=== PATIENT | female | born 1965 | race Caucasian/White ===

== ENCOUNTER 2020-05-28 00:54 | Emergency (ER) | payer OTHER ==
[2020-05-28] MEDS ORDERED: KETOROLAC 15 MG/ML 1 ML VIAL IM STA (02:29)
[2020-05-28] MEDS ORDERED: KETOROLAC 15 MG/ML 1 ML VIAL ONE (03:03)
--- NOTE | 2020-05-28 03:14 | ED ---
General Adult HPI - General Chief complaint: Skin/Abscess/Foreign Body Stated complaint: Pelvic Pain Time Seen by Provider: 05/28/20 01:38 Source: patient Mode of arrival: ambulatory Limitations: no limitations - History of Present Illness Initial comments: 55-year-old female patient presents to the emergency department today for evaluation of pain to the right groin, right thigh, and right calf. Patient states the pain started earlier today. Denies any swelling to the leg. Patient states she can feel lumps over the right groin. Denies any redness, swelling, or drainage. Denies any fever or chills. Patient states that she did have a [address] ride from [place] to here approximately 3 weeks ago. Denies any history of DVT. Denies use of hormonal medications. Denies any injury to the leg. Patient denies any recent rash, cough, shortness of breath, chest pain, abdominal pain, nausea, vomiting, diarrhea, constipation, back pain, numbness, tingling, dizziness, weakness, hematuria, dysuria, urinary urgency, urinary frequency, headache, visual changes, or any other complaints. - Related Data Previous Rx's Medication Instructions Recorded Ibuprofen [Motrin] 600 mg PO Q8HR PRN #30 tab 05/28/20 Allergies Allergy/AdvReac Type Severity Reaction Status Date / Time ciprofloxacin AdvReac Rash/Hives Verified 05/28/20 01:07 lorazepam [From Ativan] AdvReac Unknown Verified 05/28/20 04:05 Sulfa (Sulfonamide AdvReac Rash/Hives Verified 05/28/20 01:07 Antibiotics) sulfamethoxazole AdvReac Rash/Hives Verified 05/28/20 01:07 [From Bactrim] trimethoprim [From Bactrim] AdvReac Rash/Hives Verified 05/28/20 01:07 Review of Systems ROS Statement: Those systems with pertinent positive or pertinent negative responses have been documented in the HPI. ROS Other: All systems not noted in ROS Statement are negative. Past Medical History Past Medical History: Fibromyalgia Additional Past Medical History / Comment(s): herniated discs. History of Any Multi-Drug Resistant Organisms: None Reported Past Surgical History: Section Past Psychological History: Anxiety Smoking Status: Current every day smoker Past Alcohol Use History: Rare Past Drug Use History: None Reported General Exam Limitations: no limitations General appearance: alert, in no apparent distress, other (This is a well- developed, well-nourished adult female patient in no acute distress. Vital signs upon presentation are temperature 98.5F, pulse 76, respirations 19, blood pressure 130/80, pulse ox 100% on room air.) Respiratory exam: Present: normal lung sounds bilaterally. Absent: respiratory distress, wheezes, rales, rhonchi, stridor Cardiovascular Exam: Present: regular rate, normal rhythm, normal heart sounds. Absent: systolic murmur, diastolic murmur, rubs, gallop, clicks GI/Abdominal exam: Present: soft, normal bowel sounds. Absent: distended, tenderness, guarding, rebound, rigid External exam: Present: normal external exam, other (There is tenderness noted over the right mons pubis. No erythema. No evidence for abscess.) Extremities exam: Present: normal inspection, full ROM, tenderness (Right groin), normal capillary refill, other (Skin to the right leg is pink, warm, dry. Cap refills less than 3 seconds. Pedal and posttibial pulses are 2+ and equal bilaterally. No swelling noted.). Absent: pedal edema, joint swelling, calf tenderness Course Vital Signs 05/28/20 05/28/20 01:03 04:16 Temperature 98.5 F Pulse Rate 76 63 Respiratory 19 19 Rate Blood Pressure 130/80 112/61 O2 Sat by Pulse 100 98 Oximetry EKG Findings - EKG Comments: EKG Findings:: EKG obtained at 10 11 shows normal sinus rhythm with a ventricular rate is 72, NC interval 158, QRS duration 82, QT 374, QTC 409. No evidence of ST elevation or depression. Medical Decision Making - Medical Decision Making 55-year-old female patient presents to the emergency department today for evaluation of right calf, right thigh, and right groin pain. Physical examination is unremarkable. There is no soft tissue swelling. Neurovascular status is intact. Patient did have some tenderness over the right mons pubis with no evidence or erythema or abscess. No inguinal lymph nodes are appreciated. Patient did recently have a long car trip from [place] to [place]. We did ultrasound the right legs for DVT, it was negative. She was given anti-inflammatory medication. Upon reevaluation shows report improvement of symptoms. To be discharged home with instructions follow up with her primary care physician for recheck in 1-2 days. Return parameters were discussed in detail. She verbalizes understanding and agrees with this plan. - Radiology Data Radiology results: report reviewed Ultrasound of the right leg was obtained. Report was reviewed in its entirety. Impression by Dr. Marsh shows negative for DVT. Disposition Clinical Impression: Right leg pain, Right groin pain Disposition: HOME SELF-CARE Condition: Good Instructions (If sedation given, give patient instructions): Groin Pain (ED), Leg Pain (ED) Additional Instructions: Rest. Take Advil and Tylenol for pain control. Follow up with her primary care physician for recheck in 1-2 days. Return to the emergency department immediately for any new, worsening, or concerning symptoms. Is patient prescribed a controlled substance at d/c from ED?: No Referrals: None,Stated [Primary Care Provider] - 1-2 days Time of Disposition: 04:42
[2020-05-28] MEDS ORDERED: LORazepam 1 MG TAB PO STA (04:02)
[2020-05-28] MEDS ORDERED: hydrOXYzine pamoate 25 MG CAP PO STA (04:08)
--- NOTE | 2020-05-28 04:29 | US ---
EXAMINATION TYPE: US venous doppler duplex LE RT DATE OF EXAM: 05/28/2020 2:29 AM COMPARISON: NONE CLINICAL HISTORY: Right calf and thigh pain. Pain SIDE PERFORMED: Right TECHNIQUE: The lower extremity deep venous system is examined utilizing real time linear array sonog maday with graded compression, doppler sonography and color-flow sonography. VESSELS IMAGED: External Iliac Vein (EIV) Common Femoral Vein Deep Femoral Vein Greater Saphenous Vein * Femoral Vein Popliteal Vein Small Saphenous Vein * Proximal Calf Veins (* superficial vessels) Right Leg: Negative for DVT IMPRESSION: No sign of deep vein thrombosis in the right leg.
[2020-05-28 05:11] VITALS: BP 120/57; PULSE 65; RESP 14; TEMP 97.6
== END 2020-05-28 05:07 | disposition home or self-care (01) ==
LOC: EC 00:54
DX: R10.31 Right lower quadrant pain (principal); M79.661 Pain in right lower leg; M79.651 Pain in right thigh; R10.2 Pelvic and perineal pain; F17.200 Nicotine dependence, unspecified, uncomplicated; Z88.1 Allergy status to other antibiotic agents; Z88.2 Allergy status to sulfonamides; Z88.8 Allergy status to other drugs, medicaments and biological substances
CPT/HCPCS: 93971; 99284; 96372; J1885

== ENCOUNTER 2020-07-22 09:42 | Emergency (ER) | payer OTHER ==
[2020-07-22] MEDS ORDERED: ONDANSETRON 4 MG/2 ML VIAL IVP STA (10:02)
[2020-07-22] MEDS ORDERED: SODIUM CHLORIDE 0.9% 2,000 ML IV STA (10:02)
[2020-07-22] MEDS ORDERED: DIAZEPAM 5 MG/ML 2 ML INJ IVP STA (10:04)
[2020-07-22] MEDS ORDERED: ACETAMINOPHEN TAB 325 MG TAB PO STA (10:06)
--- NOTE | 2020-07-22 10:07 | ED ---
General Adult HPI - General Chief complaint: Nausea/Vomiting/Diarrhea Stated complaint: Lightheaded, Diarhea Time Seen by Provider: 07/22/20 09:56 Source: patient, family, RN notes reviewed Mode of arrival: ambulatory Limitations: no limitations - History of Present Illness Initial comments: This is a 55-year-old female presents emergency Department chief complaint of abdominal discomfort, fever, urinary frequency and diarrhea. Patient states that this has been increasing for a while. Patient states that she's been struggling with anxiety issues in which she has a long history of this. She states she just felt like the symptoms related to anxiety but states symptoms worsened and she was concerned. Patient had multiple prior C-sections. Patient denies any known sick contacts. Denies any chest pain, cough or cold-like symptoms. Patient denies any other associated symptoms at this time. - Related Data Previous Rx's Medication Instructions Recorded Ibuprofen [Motrin] 600 mg PO Q8HR PRN #30 tab 05/28/20 Omeprazole [PriLOSEC] 40 mg PO DAILY #14 cap 07/22/20 Allergies Allergy/AdvReac Type Severity Reaction Status Date / Time ciprofloxacin AdvReac Rash/Hives Verified 07/22/20 09:52 lorazepam [From Ativan] AdvReac Unknown Verified 07/22/20 09:52 Sulfa (Sulfonamide AdvReac Rash/Hives Verified 07/22/20 09:52 Antibiotics) sulfamethoxazole AdvReac Rash/Hives Verified 07/22/20 09:52 [From Bactrim] trimethoprim [From Bactrim] AdvReac Rash/Hives Verified 07/22/20 09:52 Review of Systems ROS Statement: Those systems with pertinent positive or pertinent negative responses have been documented in the HPI. ROS Other: All systems not noted in ROS Statement are negative. Past Medical History Past Medical History: Fibromyalgia Additional Past Medical History / Comment(s): herniated discs. History of Any Multi-Drug Resistant Organisms: None Reported Past Surgical History: Section Past Psychological History: Anxiety, Depression Smoking Status: Current every day smoker Past Alcohol Use History: None Reported Past Drug Use History: None Reported General Exam Limitations: no limitations General appearance: alert, in no apparent distress Head exam: Present: atraumatic, normocephalic, normal inspection Eye exam: Present: normal appearance, PERRL, EOMI. Absent: scleral icterus, conjunctival injection, periorbital swelling ENT exam: Present: normal exam, normal oropharynx, mucous membranes moist Neck exam: Present: normal inspection, full ROM. Absent: tenderness, me ningismus, lymphadenopathy Respiratory exam: Present: normal lung sounds bilaterally. Absent: respiratory distress, wheezes, rales, rhonchi, stridor Cardiovascular Exam: Present: normal rhythm, tachycardia, normal heart sounds. Absent: systolic murmur, diastolic murmur, rubs, gallop, clicks GI/Abdominal exam: Present: soft, tenderness, normal bowel sounds. Absent: distended, guarding, rebound, rigid Back exam: Absent: CVA tenderness (R), CVA tenderness (L) Psychiatric exam: Present: normal affect, normal mood Course Vital Signs 07/22/20 07/22/20 09:47 11:00 Temperature 100.5 F H Pulse Rate 94 61 Respiratory 20 18 Rate Blood Pressure 126/67 118/67 O2 Sat by Pulse 98 97 Oximetry Medical Decision Making - Medical Decision Making 55-year-old presented for anxiety issues, diarrhea abdominal. CT does not show any evidence of acute infection. Patient most likely has a gastroenteritis. Patient does have some evidence of ulcer disease. Patient will given omeprazole we discharged with close follow-up PCP and return parameters were discussed. - Lab Data Result diagrams: 07/22/20 10:13 07/22/20 10:13 Lab Results 07/22/20 07/22/20 07/22/20 Range/Units 10:13 10:13 10:13 WBC 10.6 (3.8-10.6) k/uL RBC 4.78 (3.80-5.40) m/uL Hgb 15.2 (11.4-16.0) gm/dL Hct 46.4 H (34.0-46.0) % MCV 97.0 (80.0-100.0) fL MCH 31.7 (25.0-35.0) pg MCHC 32.7 (31.0-37.0) g/dL RDW 12.8 (11.5-15.5) % Plt Count 350 (150-450) k/uL Neutrophils % 71 % Lymphocytes % 22 % Monocytes % 4 % Eosinophils % 1 % Basophils % 1 % Neutrophils # 7.5 (1.3-7.7) k/uL Lymphocytes # 2.3 (1.0-4.8) k/uL Monocytes # 0.4 (0-1.0) k/uL Eosinophils # 0.1 (0-0.7) k/uL Basophils # 0.1 (0-0.2) k/uL Sodium 138 (137-145) mmol/L Potassium 4.2 (3.5-5.1) mmol/L Chloride 108 H (98-107) mmol/L Carbon Dioxide 24 (22-30) mmol/L Anion Gap 6 mmol/L BUN 10 (7-17) mg/dL Creatinine 0.66 (0.52-1.04) mg/dL Est GFR (CKD-EPI)AfAm >90 (>60 ml/min/1.73 sqM) Est GFR (CKD-EPI)NonAf >90 (>60 ml/min/1.73 sqM) Glucose 107 H (74-99) mg/dL Plasma Lactic Acid Jon (0.7-2.0) mmol/L Calcium 9.9 (8.4-10.2) mg/dL Total Bilirubin 0.7 (0.2-1.3) mg/dL AST 30 (14-36) U/L ALT 11 (4-34) U/L Alkaline Phosphatase 95 (38-126) U/L Total Protein 7.6 (6.3-8.2) g/dL Albumin 4.5 (3.5-5.0) g/dL Amylase 47 (30-110) U/L Lipase 102 (23-300) U/L Urine Color Colorless Urine Appearance Clear (Clear) Urine pH 7.0 (5.0-8.0) Ur Specific Alpine 1.004 (1.001-1.035) Urine Protein Negative (Negative) Urine Glucose (UA) Negative (Negative) Urine Ketones Negative (Negative) Urine Blood Negative (Negative) Urine Nitrite Negative (Negative) Urine Bilirubin Negative (Negative) Urine Urobilinogen <2.0 (<2.0) mg/dL Ur Leukocyte Esterase Negative (Negative) 07/22/20 Range/Units 10:13 WBC (3.8-10.6) k/uL RBC (3.80-5.40) m/uL Hgb (11.4-16.0) gm/dL Hct (34.0-46.0) % MCV (80.0-100.0) fL MCH (25.0-35.0) pg MCHC (31.0-37.0) g/dL RDW (11.5-15.5) % Plt Count (150-450) k/uL Neutrophils % % Lymphocytes % % Monocytes % % Eosinophils % % Basophils % % Neutrophils # (1.3-7.7) k/uL Lymphocytes # (1.0-4.8) k/uL Monocytes # (0-1.0) k/uL Eosinophils # (0-0.7) k/uL Basophils # (0-0.2) k/uL Sodium (137-145) mmol/L Potassium (3.5-5.1) mmol/L Chloride (98-107) mmol/L Carbon Dioxide (22-30) mmol/L Anion Gap mmol/L BUN (7-17) mg/dL Creatinine (0.52-1.04) mg/dL Est GFR (CKD-EPI)AfAm (>60 ml/min/1.73 sqM) Est GFR (CKD-EPI)NonAf (>60 ml/min/1.73 sqM) Glucose (74-99) mg/dL Plasma Lactic Acid Jon 1.1 (0.7-2.0) mmol/L Calcium (8.4-10.2) mg/dL Total Bilirubin (0.2-1.3) mg/dL AST (14-36) U/L ALT (4-34) U/L Alkaline Phosphatase (38-126) U/L Total Protein (6.3-8.2) g/dL Albumin (3.5-5.0) g/dL Amylase (30-110) U/L Lipase (23-300) U/L Urine Color Urine Appearance (Clear) Urine pH (5.0-8.0) Ur Specific Alpine (1.001-1.035) Urine Protein (Negative) Urine Glucose (UA) (Negative) Urine Ketones (Negative) Urine Blood (Negative) Urine Nitrite (Negative) Urine Bilirubin (Negative) Urine Urobilinogen (<2.0) mg/dL Ur Leukocyte Esterase (Negative) Disposition Clinical Impression: Anxiety, Gastroenteritis Disposition: HOME SELF-CARE Condition: Stable Instructions (If sedation given, give patient instructions): Acute Diarrhea (ED) Additional Instructions: Please return to the Emergency Department if symptoms worsen or any other concerns. Prescriptions: Omeprazole [PriLOSEC] 40 mg PO DAILY #14 cap Is patient prescribed a controlled substance at d/c from ED?: No Referrals: Kenneth Perez MD [Primary Care Provider] - 1-2 days Time of Disposition: 11:49
[2020-07-22 10:31] LABS: Basophils # (A) 0.1 k/uL (0-0.2); Basophils % (A) 1 %; Eosinophils # (A) 0.1 k/uL (0-0.7); Eosinophils % (A) 1 %; HCT 46.4 % (34.0-46.0); HGB 15.2 gm/dL (11.4-16.0); Lymphocytes # (A) 2.3 k/uL (1.0-4.8); Lymphocytes % (A) 22 %; MCH 31.7 pg (25.0-35.0); MCHC 32.7 g/dL (31.0-37.0); Monocytes # (A) 0.4 k/uL (0-1.0); Monocytes % (A) 4 %; Neutrophils # (A) 7.5 k/uL (1.3-7.7); Neutrophils % (A) 71 %; Platelet Count 350 k/uL (150-450); RBC 4.78 m/uL (3.80-5.40); RDW 12.8 % (11.5-15.5); WBC 10.6 k/uL (3.8-10.6)
[2020-07-22 10:32] LABS: Appearance,Urine Clear (Clear); Bilirubin,Urine Negative (Negative); Blood,Urine Negative (Negative); Color,Urine Colorless; Glucose,Urine (UA) Negative (Negative); Ketones,Urine Negative (Negative); Leukocyte Esterase,Urine Negative (Negative); Nitrite,Urine Negative (Negative); Protein,Urine Negative (Negative); Specific Gravity,Urine 1.004 (1.001-1.035); Urobilinogen,Urine <2.0 mg/dL (<2.0)
[2020-07-22 10:44] LABS: ALT 11 U/L (4-34); AST 30 U/L (14-36); African American GFR (CKD) >90 (>60 ml/min/1.73 sqM); Albumin 4.5 g/dL (3.5-5.0); Alkaline Phosphatase 95 U/L (38-126); Amylase 47 U/L (30-110); Anion Gap 6 mmol/L; Blood Urea Nitrogen 10 mg/dL (7-17); Calcium 9.9 mg/dL (8.4-10.2); Carbon Dioxide 24 mmol/L (22-30); Chloride 108 mmol/L (98-107); Glucose 107 mg/dL (74-99); Non-African American GFR(CKD) >90 (>60 ml/min/1.73 sqM); Potassium 4.2 mmol/L (3.5-5.1); Sodium 138 mmol/L (137-145); Total Bilirubin 0.7 mg/dL (0.2-1.3); Total Protein 7.6 g/dL (6.3-8.2)
--- NOTE | 2020-07-22 11:06 | CT ---
EXAMINATION TYPE: CT abdomen pelvis w con DATE OF EXAM: 07/22/2020 COMPARISON: None INDICATION: Abdominal pain-stomach area DLP: 661.4 mGycm, Automated exposure control for dose reduction was used. CONTRAST: 100 mL of Isovue 300. Study performed without Oral Contrast TECHNIQUE: Axial images were obtained from above the diaphragm to the pubic rami in the axial plane a t 5 mm thick sections. Reconstructed images are reviewed on the computer in the coronal plane. FINDINGS: Limited CT sections are obtained the lung bases. The lung bases are clear. CT ABDOMEN: There is some wall thickening diffusely of the antrum of the stomach. The fundus body gris ear normal. The proximal duodenum has a more normal appearance. Correlate for antritis Liver: Punctate hepatic cyst may be in the posterior inferior right tip of the liver measuring 0.4 cm . Spleen: Normal Pancreas: Normal Adrenal glands: The adrenal glands are normal. Gallbladder: Normal Kidneys: No masses are evident. No hydronephrosis is present. No cysts are present. Delayed images were obtained through the kidneys, which remain unremarkable. Aorta: Normal Inferior vena cava: Normal. CT PELVIS: Loops of bowel within the abdomen and pelvis are normal. Scattered diverticuli are through the sigmo id colon. There are loops of bowel which are incompletely distended or lack oral contrast limiting their evaluation. Appendix: Normal as visualized. Urinary bladder: Normal. Genitourinary structures: Uterus and ovaries are not identified. Osseous structures: No suspicious lytic or sclerotic lesions. IMPRESSIONS: 1. Mild diverticulosis without acute diverticulitis. 2. Clinical consideration for antritis of the stomach is recommended.
[2020-07-22 11:23] VITALS: RESP 18
[2020-07-22 12:03] VITALS: BP 107/75; PULSE 65; TEMP 99.1
== END 2020-07-22 12:05 | disposition home or self-care (01) ==
LOC: EC 09:42
DX: F41.9 Anxiety disorder, unspecified (principal); K52.9 Noninfective gastroenteritis and colitis, unspecified; L98.499 Non-pressure chronic ulcer of skin of other sites with unspecified severity; F17.200 Nicotine dependence, unspecified, uncomplicated; Z88.1 Allergy status to other antibiotic agents; Z88.8 Allergy status to other drugs, medicaments and biological substances; Z88.2 Allergy status to sulfonamides
CPT/HCPCS: 36415; 80053; 82150; 83605; 83690; 85025; 81003; 74177; 99284; 96374; 96375; 96361; J3360; J2405; Q9967

== ENCOUNTER 2020-08-19 20:26 | Observation (INO) | payer OTHER ==
[2020-08-19 20:36] VITALS: TEMP 99.1
[2020-08-19] MEDS ORDERED: NITROGLYCERIN SL TABS 0.4 MG TAB SUBLINGUAL STA ×2 (20:38)
[2020-08-19] MEDS ORDERED: ASPIRIN 81 MG PO STA (20:38)
[2020-08-19 21:13] LABS: Basophils # (A) 0.1 k/uL (0-0.2); Basophils % (A) 1 %; Eosinophils # (A) 0.3 k/uL (0-0.7); Eosinophils % (A) 2 %; HCT 43.2 % (34.0-46.0); HGB 14.4 gm/dL (11.4-16.0); Lymphocytes # (A) 4.8 k/uL (1.0-4.8); Lymphocytes % (A) 38 %; MCH 31.7 pg (25.0-35.0); MCHC 33.4 g/dL (31.0-37.0); Monocytes # (A) 0.6 k/uL (0-1.0); Monocytes % (A) 5 %; Neutrophils # (A) 6.6 k/uL (1.3-7.7); Neutrophils % (A) 53 %; Platelet Count 352 k/uL (150-450); RBC 4.55 m/uL (3.80-5.40); RDW 12.6 % (11.5-15.5); WBC 12.6 k/uL (3.8-10.6)
[2020-08-19] MEDS ORDERED: ONDANSETRON 4 MG/2 ML VIAL IVP STA (21:14)
[2020-08-19 21:24] LABS: Albumin 4.2 g/dL (3.5-5.0); Calcium 9.6 mg/dL (8.4-10.2); Potassium 4.5 mmol/L (3.5-5.1); Total Bilirubin 0.3 mg/dL (0.2-1.3); Total Protein 7.1 g/dL (6.3-8.2)
[2020-08-19 21:25] LABS: Appearance,Urine Clear (Clear); Bacteria,Urine Rare /hpf; Bilirubin,Urine Negative (Negative); Blood,Urine Small (Negative); Color,Urine Yellow; Glucose,Urine (UA) Negative (Negative); Ketones,Urine Negative (Negative); Leukocyte Esterase,Urine Negative (Negative); Mucus,Urine Rare /hpf; Nitrite,Urine Negative (Negative); PH, Urine 6.5 (5.0-8.0); Protein,Urine Negative (Negative); RBC,Urine 9 /hpf (0-5); Specific Gravity,Urine 1.018 (1.001-1.035); Squamous Epithelial Cell,Urine <1 /hpf (0-4); Urobilinogen,Urine <2.0 mg/dL (<2.0); WBC,Urine <1 /hpf (0-5)
--- NOTE | 2020-08-19 21:28 | ED ---
Chest Pain HPI - General Source: patient Mode of arrival: wheelchair Limitations: no limitations <David Ballard - Last Filed: 08/19/20 22:35> <Heidi Cloud - Last Filed: 08/23/20 09:42> - General Chief Complaint: Chest Pain Stated Complaint: Chest Pain Time Seen by Provider: 08/19/20 20:38 - History of Present Illness Initial Comments: Patient is 55-year-old female with history of anxiety presenting to emergency Department with a chief complaint of chest pain. Patient states the pain started about 2 hours prior to arrival and is located in the left side of the chest. She says that it feels like pressure with radiation to her left shoulder blade and left upper extremity. She does report some lightheadedness but denies any dizziness, diaphoretic episodes, nausea or vomiting. Denies one-sided weakness or paresthesias. Denies any headaches, visual changes. States the pain does seem to be exacerbated with taking deep breaths. She denies any associated shortness of breath. Denies taking medications. The symptoms. Patient is a daily tobacco smoker but denies any other cardiac history, hyper cholesterolemia, hypertension, diabetes. Denies night sweats fevers or chills. (David Ballard) - Related Data Allergies Allergy/AdvReac Type Severity Reaction Status Date / Time ciprofloxacin AdvReac Rash/Hives Verified 08/21/20 12:24 lorazepam [From Ativan] AdvReac Unknown Verified 08/21/20 12:24 Sulfa (Sulfonamide AdvReac Rash/Hives Verified 08/21/20 12:24 Antibiotics) sulfamethoxazole AdvReac Rash/Hives Verified 08/21/20 12:24 [From Bactrim] trimethoprim [From Bactrim] AdvReac Rash/Hives Verified 08/21/20 12:24 Review of Systems ROS Other: All systems not noted in ROS Statement are negative. <David Ballard - Last Filed: 08/19/20 22:35> ROS Other: All systems not noted in ROS Statement are negative. <Heidi Cloud - Last Filed: 08/23/20 09:42> ROS Statement: Those systems with pertinent positive or pertinent negative responses have been documented in the HPI. Past Medical History Past Medical History: No Reported History, Fibromyalgia Additional Past Medical History / Comment(s): panic attack History of Any Multi-Drug Resistant Organisms: None Reported Past Surgical History: Section, Hysterectomy, Tonsillectomy Past Psychological History: Anxiety, Depression, Panic Disorder Smoking Status: Current every day smoker Past Alcohol Use History: None Reported Past Drug Use History: None Reported <David Ballard - Last Filed: 08/19/20 22:35> General Exam Limitations: no limitations General appearance: alert, in no apparent distress Head exam: Present: atraumatic, normocephalic, normal inspection Eye exam: Present: normal appearance, PERRL, EOMI Pupils: Present: normal accommodation ENT exam: Present: normal exam, normal oropharynx, mucous membranes moist, TM's normal bilaterally, normal external ear exam Neck exam: Present: normal inspection, full ROM. Absent: tenderness Respiratory exam: Present: normal lung sounds bilaterally. Absent: respiratory distress, wheezes, rales Cardiovascular Exam: Present: regular rate, normal rhythm, normal heart sounds. Absent: systolic murmur, diastolic murmur Extremities exam: Present: normal inspection, full ROM, normal capillary refill. Absent: tenderness, pedal edema, joint swelling Back exam: Present: normal inspection, full ROM. Absent: tenderness, CVA tend erness (R), CVA tenderness (L) Neurological exam: Present: alert, oriented X3 Psychiatric exam: Present: normal affect, normal mood Skin exam: Present: warm, dry, intact, normal color <David Ballard - Last Filed: 08/19/20 22:35> Course Vital Signs 08/19/20 08/19/20 08/19/20 20:30 20:47 20:50 Temperature 99.1 F Pulse Rate 75 70 Respiratory 18 18 Rate Blood Pressure 132/77 147/93 O2 Sat by Pulse 99 98 98 Oximetry 08/19/20 08/19/20 08/19/20 21:00 21:10 21:30 Temperature Pulse Rate 65 71 62 Respiratory 13 9 L 11 L Rate Blood Pressure 147/93 104/55 95/58 O2 Sat by Pulse 95 96 96 Oximetry 08/19/20 08/19/20 08/19/20 22:00 22:10 22:15 Temperature Pulse Rate 63 65 58 L Respiratory 16 5 L 18 Rate Blood Pressure 95/53 110/57 97/56 O2 Sat by Pulse 99 98 97 Oximetry 08/19/20 08/19/20 08/19/20 22:20 22:30 22:50 Temperature Pulse Rate 62 61 60 Respiratory 13 15 17 Rate Blood Pressure 97/56 104/52 99/57 O2 Sat by Pulse 97 97 Oximetry 08/19/20 08/19/20 08/19/20 23:10 23:40 23:50 Temperature Pulse Rate 62 59 L 61 Respiratory 20 15 15 Rate Blood Pressure 92/53 90/57 89/49 O2 Sat by Pulse Oximetry 08/20/20 08/20/20 08/20/20 00:00 00:10 00:20 Temperature Pulse Rate 61 62 59 L Respiratory 15 16 17 Rate Blood Pressure 91/50 91/52 85/46 O2 Sat by Pulse Oximetry 08/20/20 08/20/20 08/20/20 00:26 01:10 02:10 Temperature Pulse Rate 57 L 56 L 55 L Respiratory 19 16 16 Rate Blood Pressure 102/66 93/56 100/59 O2 Sat by Pulse Oximetry 08/20/20 08/20/20 03:00 07:00 Temperature Pulse Rate 54 L Respiratory 15 Rate Blood Pressure 100/59 106/64 O2 Sat by Pulse Oximetry Chest Pain MDM <David Ballard - Last Filed: 08/19/20 22:35> <Heidi Cloud - Last Filed: 08/23/20 09:42> - MDM 55-year-old female presenting to the emergency Department with a chief complaint of chest pain. Physical examination is unremarkable. EKG showing sinus rhythm with no ST or T-wave changes. CBC CMP are unremarkable. Patient requested UA because she has had increased frequency. UA shows some red blood cells but otherwise unremarkable. Initial troponins are negative. D-dimer is also negative. Chest x-ray shows improved lung julio with clearing of atelectasis. Patient will be admitted for cardiac observation and serial troponins. Case discussed with Admitting is Dr Zavala Cardiology consulted (David Ballard) I was available for consultation in the emergency department. The history and physical exam were done by the midlevel provider. I was consulted for this patients care. I reviewed the case with the midlevel provider and based on their presentation of the patient, I agree with the assessment, medical decision making and plan of care as documented. Chart was dictated using [facility] dictation software. Attempts were made to correct any dictation errors however some typographical errors may persist. Patient seen during the Covid-19 pandemic. (Heidi Cloud) Disposition Is patient prescribed a controlled substance at d/c from ED?: No Time of Disposition: 22:35 <David Ballard - Last Filed: 08/19/20 22:35> <Heidi Cloud - Last Filed: 08/23/20 09:42> Clinical Impression: Chest pain Disposition: ADMITTED IP TO THIS HOSP Condition: Good
--- NOTE | 2020-08-19 21:35 | XR ---
EXAMINATION TYPE: XR chest 2V DATE OF EXAM: 08/19/2020 COMPARISON: 06/10/2010 HISTORY: Chest pain TECHNIQUE: FINDINGS: Heart and mediastinum are normal. Lungs are clear. Diaphragm is normal. There are chest anna ds. Bony thorax is intact. IMPRESSION: No active cardiopulmonary disease. There is clearing of minimal subsegmental atelectasis in the left lower lobe compared to old exam.
[2020-08-19 21:36] LABS: Partial Thromboplastin Time 22.7 sec (22.0-30.0); Prothrombin Time 10.2 sec (9.0-12.0)
[2020-08-19] MEDS ORDERED: DIAZEPAM 5 MG/ML 2 ML INJ IVP STA (22:06)
[2020-08-19] MEDS ORDERED: NALOXONE 0.4 MG/ML 1 ML VIAL IV PRN (22:33)
[2020-08-19] MEDS ORDERED: ACETAMINOPHEN TAB 325 MG TAB PO PRN (22:33)
[2020-08-19] MEDS ORDERED: MORPHINE SULFATE 4 MG/ML SYRINGE IV PRN (22:33)
[2020-08-19] MEDS ORDERED: IBUPROFEN 400 MG TAB PO PRN (22:33)
[2020-08-19] MEDS ORDERED: HYDROcodone/APAP 5-325MG 1 EACH TAB PO PRN (22:33)
[2020-08-19] MEDS ORDERED: HYDROmorphone 0.5 MG/0.5 ML SYRINGE IVP PRN (22:33)
[2020-08-19] MEDS: ALPRAZolam 0.5 MG TAB PO PRN (22:41)
[2020-08-19] MEDS ORDERED: SODIUM CHLORIDE 0.9% 1,000 ML IV SCH (22:45)
[2020-08-20] MEDS ORDERED: ALPRAZolam 0.5 MG TAB PO PRN (09:00)
[2020-08-20 09:24] VITALS: BP 106/64
--- NOTE | 2020-08-20 09:42 | P.CRDCN ---
History of Present Illness Consult date: 08/20/20 History of present illness: CHIEF COMPLAINT: Chest pain HISTORY OF PRESENT ILLNESS: This is a 55-year old female with a past medical history significant for nicotine dependence, fibromyalgia, and panic attacks. 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 We have been asked to see the patient in consultation for chest pain. Patient examined this morning at the bedside in the emergency room. Patient states yesterday she began having chest pain while she was walking around her house and cooking dinner. She describes the discomfort as a pressure on her chest. She reports radiation of pain down her left arm. She reports feeling slightly nauseous and diaphoretic. She denies being short of breath but states she felt like it was hard to take a deep breath because of the pain. At the time of my examination this morning, the patient is chest pain-free and resting comfortably. Patient denies any family history of cardiac disease. DIAGNOSTICS: EKG reveals sinus rhythm without any signs of acute ischemia Chest xray negative for acute process Laboratory data: WBC 12.6. Hemoglobin 14.4. Platelet count 352. D-dimer 0.17. Sodium 136. Potassium 4.5. BUN 15. Creatinine 1.46. Troponin negative 3 Current home cardiac medications include: None REVIEW OF SYSTEMS: At the time of my exam: CONSTITUTIONAL: Denies fever or chills. HEENT: Denies blurred vision, vision changes, or eye pain. Denies hemoptysis CARDIOVASCULAR: Denies chest pain, orthopnea, PND or palpitations RESPIRATORY: No shortness of breath. GASTROINTESTINAL: Denies abdominal pain. Denies nausea or vomiting. HEMATOLOGIC: Denies bleeding disorders. GENITOURINARY: Denies any blood in urine. SKIN: Denies pruitis. Denies rash. PHYSICAL EXAM: VITAL SIGNS: Reviewed. GENERAL: Well-developed in no acute distress. HEENT: Head is normocephalic. Pupils are equal, round. Sclerae anicteric. Mucous membranes of the mouth are moist. Neck supple. No JVD or thyromegaly LUNGS: Respirations even and unlabored. Lungs essentially clear to auscultation bilaterally. HEART: Regular rate and rhythm. S1 and S2 heard. ABDOMEN: Soft. Nondistended. Nontender. EXTREMITIES: Normal range of motion. No clubbing or cyanosis. Peripheral pulses intact. No lower extremity edema NEUROLOGIC: Awake and alert. Oriented x 3. ASSESSMENT: Chest pain, troponins negative 3 Acute kidney injury, baseline creatinine unknown Fibromyalgia History of panic attacks Nicotine dependence, patient smokes 1 pack per day PLAN: An acute coronary event has been ruled out Obtain 2-D echo to assess cardiac structure and function Patient to undergo stress test this morning to assess for reversible ischemia Nurse practitioner note has been reviewed by physician. Signing provider agrees with the documented findings, assessment, and plan of care. Past Medical History Past Medical History: No Reported History, Fibromyalgia Additional Past Medical History / Comment(s): panic attack History of Any Multi-Drug Resistant Organisms: None Reported Past Surgical History: Section, Hysterectomy, Tonsillectomy Past Psychological History: Anxiety, Depression, Panic Disorder Smoking Status: Current every day smoker Past Alcohol Use History: None Reported Past Drug Use History: None Reported Medications and Allergies Home Medications Medication Instructions Recorded Confirmed Type Escitalopram Oxalate [Lexapro] 10 mg PO DAILY 08/19/20 08/19/20 History Gabapentin 300 mg PO BID 08/19/20 08/19/20 History Omeprazole 40 mg PO HS 08/19/20 08/19/20 History Timolol 0.5% Ophth Soln [Timoptic 1 drop RIGHT EYE HS 08/19/20 08/19/20 History 0.5% Ophth Soln] diazePAM [Valium] 2 mg PO DAILY PRN 08/19/20 08/19/20 History Allergies Allergy/AdvReac Type Severity Reaction Status Date / Time ciprofloxacin [From Cipro] Allergy Unknown Verified 08/19/20 23:00 lorazepam [From Ativan] Allergy Unknown Verified 08/19/20 23:00 Sulfa (Sulfonamide Allergy Unknown Verified 08/19/20 23:00 Antibiotics) sulfamethoxazole Allergy Unknown Verified 08/19/20 23:00 [From Bactrim] trimethoprim [From Bactrim] Allergy Unknown Verified 08/19/20 23:00 Physical Exam Vitals: Vital Signs Temp Pulse Resp BP Pulse Ox 08/20/20 07:00 106/64 08/20/20 03:00 54 L 15 100/59 08/20/20 02:10 55 L 16 100/59 08/20/20 01:10 56 L 16 93/56 08/20/20 00:26 57 L 19 102/66 08/20/20 00:20 59 L 17 85/46 08/20/20 00:10 62 16 91/52 08/20/20 00:00 61 15 91/50 08/19/20 23:50 61 15 89/49 08/19/20 23:40 59 L 15 90/57 08/19/20 23:10 62 20 92/53 08/19/20 22:50 60 17 99/57 08/19/20 22:30 61 15 104/52 97 08/19/20 22:20 62 13 97/56 97 08/19/20 22:15 58 L 18 97/56 97 08/19/20 22:10 65 5 L 110/57 98 08/19/20 22:00 63 16 95/53 99 08/19/20 21:30 62 11 L 95/58 96 08/19/20 21:10 71 9 L 104/55 96 08/19/20 21:00 65 13 147/93 95 08/19/20 20:50 70 18 147/93 98 08/19/20 20:47 98 08/19/20 20:30 99.1 F 75 18 132/77 99 Intake and Output 08/19/20 08/20/20 08/20/20 22:59 06:59 14:59 Other: Weight 61.235 kg Results 08/19/20 20:57 08/19/20 20:57 Cardiac Enzymes 08/19/20 08/19/20 08/20/20 Range/Units 20:57 20:57 00:18 AST 18 (14-36) U/L Troponin I <0.012 <0.012 (0.000-0.034) ng/mL 08/20/20 Range/Units 03:00 AST (14-36) U/L Troponin I <0.012 (0.000-0.034) ng/mL Coagulation 08/19/20 Range/Units 20:57 PT 10.2 (9.0-12.0) sec APTT 22.7 (22.0-30.0) sec CBC 08/19/20 Range/Units 20:57 WBC 12.6 H (3.8-10.6) k/uL RBC 4.55 (3.80-5.40) m/uL Hgb 14.4 (11.4-16.0) gm/dL Hct 43.2 (34.0-46.0) % Plt Count 352 (150-450) k/uL Comprehensive Metabolic Panel 08/19/20 Range/Units 20:57 Sodium 136 L (137-145) mmol/L Potassium 4.5 (3.5-5.1) mmol/L Chloride 105 (98-107) mmol/L Carbon Dioxide 25 (22-30) mmol/L BUN 15 (7-17) mg/dL Creatinine 1.46 H (0.52-1.04) mg/dL Glucose 104 H (74-99) mg/dL Calcium 9.6 (8.4-10.2) mg/dL AST 18 (14-36) U/L ALT 10 (4-34) U/L Alkaline Phosphatase 70 (38-126) U/L Total Protein 7.1 (6.3-8.2) g/dL Albumin 4.2 (3.5-5.0) g/dL Current Medications Generic Name Dose Route Start Last Admin Trade Name Freq PRN Reason Stop Dose Admin Acetaminophen 650 mg 08/19/20 22:33 Acetaminophen Tab 325 Mg Tab PO Q6HR PRN Mild Pain or Fever > 100.5 Hydrocodone Bitart/Acetaminophen 1 each 08/19/20 22:33 Hydrocodone/Apap 5-325mg 1 Each Tab PO Q4HR PRN Moderate Pain Alprazolam 1 mg 08/19/20 22:18 08/19/20 22:41 Alprazolam 0.5 Mg Tab PO 1 mg ONCE PRN Administration Anxiety Alprazolam 1 mg 08/20/20 09:00 Alprazolam 0.5 Mg Tab PO TID PRN Anxiety Hydromorphone HCl 0.5 mg 08/19/20 22:33 Hydromorphone 0.5 Mg/0.5 Ml Syringe IVP Q3HR PRN Moderate Pain Sodium Chloride 1,000 mls @ 75 mls/hr 08/19/20 22:45 08/20/20 07:18 Saline 0.9% IV Not Given .[id number] MARK Ibuprofen 400 mg 08/19/20 22:33 Ibuprofen 400 Mg Tab PO Q6HR PRN Mild Pain or Fever > 100.5 Morphine Sulfate 4 mg 08/19/20 22:33 Morphine Sulfate 4 Mg/Ml Syringe IV Q4HR PRN Severe Pain Naloxone HCl 0.2 mg 11/29/20 22:33 Naloxone 0.4 Mg/Ml 1 Ml Vial IV Q2M PRN Opioid Reversal Intake and Output 08/19/20 08/20/20 08/20/20 22:59 06:59 14:59 Other: Weight 61.235 kg 08/19/20 20:57 08/19/20 20:57
--- NOTE | 2020-08-20 11:10 | ECHOF ---
Referral Reason:chest pain MEASUREMENTS -------- HEIGHT: 157.5 cm WEIGHT: 61.2 kg BP: RVIDd: 2.5 cm (< 3.3) IVSd: 1.0 cm (0.6 - 1.1) LVIDd: 3.7 cm (3.9 - 5.3) LVPWd: 1.5 cm (0.6 - 1.1) IVSs: 1.4 cm LVIDs: 2.9 cm LVPWs: 1.5 cm LA Diam: 3.3 cm (2.7 - 3.8) LAESV Index (A-L): 25.58 ml/m Ao Diam: 2.7 cm (2.0 - 3.7) AV Cusp: 1.4 cm (1.5 - 2.6) MV EXCURSION: 15.271 mm (> 18.000) MV EF SLOPE: 89 mm/s (70 - 150) EPSS: 0.3 cm MV E Vitaliy: 0.67 m/s MV DecT: 185 ms MV A Vitaliy: 0.86 m/s MV E/A Ratio: 0.78 RAP: 5.00 mmHg RVSP: 10.49 mmHg FINDINGS -------- Sinus rhythm. This was a technically good study. LV size, wall thickness and systolic function are normal, with an EF greater than 55%. The left amrtin tricular size is normal. The right ventricle is normal in size. Normal LA size by volume 22+/-6 ml/m2. The right atrial size is normal. The aortic valve is trileaflet, and appears structurally normal. No aortic stenosis or regurgitation. The mitral valve is normal. Mild mitral regurgitation is present. The tricuspid valve appears structurally normal. Mild tricuspid regurgitation present. Right vent ricular systolic pressure is normal at < 35 mmHg. There is no pulmonic regurgitation present. The aortic root size is normal. Echo free space represents a pericardial fat pad. CONCLUSIONS -------- 1. LV size, wall thickness and systolic function are normal, with an EF greater than 55%. 2. Normal LA size by volume 22+/-6 ml/m2. 3. The aortic valve is trileaflet, and appears structurally normal. No aortic stenosis or regurgitati on. 4. Mild mitral regurgitation is present. 5. Mild tricuspid regurgitation present. 6. Echo free space represents a pericardial fat pad. ULTRASONIC SEAMING MACHINE OPERATOR: Deedee Landis RDCS
[2020-08-20] MEDS ORDERED: diazePAM 2 MG TAB PO PRN (11:26)
[2020-08-20] MEDS ORDERED: GABAPENTIN 300 MG CAP PO SCH (11:30)
[2020-08-20] MEDS ORDERED: ESCITALOPRAM 10 MG TAB PO SCH (11:30)
[2020-08-20] MEDS ORDERED: DICYCLOMINE 20 MG TAB PO PRN (11:32)
[2020-08-20] MEDS: ALPRAZolam 0.5 MG TAB PO PRN (11:32)
[2020-08-20 11:54] LABS: Albumin 3.6 g/dL (3.5-5.0); Calcium 9.1 mg/dL (8.4-10.2); Total Bilirubin 0.4 mg/dL (0.2-1.3); Total Protein 6.7 g/dL (6.3-8.2)
--- NOTE | 2020-08-20 12:44 | CT ---
EXAMINATION TYPE: CT ChestAbdPelvis wo con DATE OF EXAM: 08/20/2020 INDICATION: chest pain, diarrhea, frequent urination COMPARISON: 07/22/[address] DLP: 690.7 mGycm CONTRAST: Performed without Oral Contrast no intravenous contrast. TECHNIQUE: Axial images at 5 mm thick sections. Reconstructed images in the coronal plane. Delayed images through the kidneys. FINDINGS: CT CHEST: Portion of the thyroid visualized is normal. Lung windows are clear. No suspicious infiltrates or nodules are evident No enlarged mediastinal or hilar adenopathy is evident. The ascending aorta diameter at the level of the main pulmonary artery is 2.8 cm. The main pulmonary artery diameter at the bifurcation is 1.[address] ABDOMEN: Liver: Normal Spleen: Normal Pancreas: Normal Adrenal glands: The adrenal glands are normal. Gallbladder: Normal Kidneys: No masses are evident. No hydronephrosis is present. No cysts are present. Delayed images were obtained through the kidneys, which remain unremarkable. Aorta: Vascular calcification is within the aorta. Inferior vena cava: Normal. CT PELVIS: Loops of bowel within the abdomen and pelvis are normal. A few scattered diverticuli are present. There are loops of bowel which are incompletely distended or lack oral contrast limiting their evalua tion. Debris fills the stomach. Significant thickening of the antrum the stomach is not evident. Appendix: Not identified. No suspicious dilated tubular structures or inflammatory changes are eviden t. Urinary bladder: Normal. Genitourinary structures: Uterus and ovaries are not identified. Osseous structures: No suspicious lytic or sclerotic lesions. IMPRESSIONS: 1. No suspicious acute changes.
--- NOTE | 2020-08-20 12:48 | HP ---
HISTORY AND PHYSICAL A 55-year-old white female with a history of nicotine addiction, panic attacks, COPD, fibromyalgia, panic attacks, came in with pain radiating down her left arm and heaviness in her chest. So far troponins are negative x3. Her D-dimer is negative. She is nauseous and diaphoretic, hard to take a deep breath because the pain. She is worried about panic attacks, also. She denies any family history of heart disease. MEDICATIONS: See list. 14 POINT REVIEW OF SYSTEMS: Negative except for panic attacks, heaviness in chest, COPD, nicotine addiction. LABS: Reviewed. Chest x-ray is negative. BUN 15, creatinine is 1.46. Troponins negative x3. PHYSICAL EXAM: Vital signs reviewed. She is female in no acute distress. ABDOMEN: Soft, slightly increased bowel sounds. HEENT: Normocephalic, atraumatic. LUNGS: Fairly clear. Mild wheeze. EXTREMITIES: No cyanosis, clubbing, edema. NEUROLOGIC: Alert orient x3. ASSESSMENT: Atypical chest pain, COPD, nicotine addiction, panic attacks, fibromyalgia, acute kidney injury, elevated creatinine and BUN. Will do echo and we can do a stress test. Possible discharge, will do a CAT scan of the chest without contrast, also and upper chest and abdomen due to diarrhea for 2 weeks and history of COPD and smoking. No history of breast or lung cancer. MMODL / IJN: [id number] /
--- NOTE | 2020-08-20 13:03 | ECHOS ---
STRESS ECHOCARDIOGRAM LUMASON: N/A Vial INDICATIONS: Chest pain MEDICATIONS: BASELINE HEART RATE: 63 BASELINE BLOOD PRESSURE: 108/59 MAXIMUM HEART RATE: 121 MAXIMUM BLOOD PRESSURE: 128/57 85% MPHR: 139 100% MPHR: 163 METS: 10.5 MAXIMUM STAGE REACHED: 3 TOTAL EXERCISE TIME: 9:08 CLINICAL INFORMATION: Baseline rhythm is sinus mechanism rate 63, normal axis, intervals, normal echocardiogram. Baseline blood pressure 108/59 mmHg. Patient exercised on Sameer protocol for 9 minutes reaching peak rate 121 beats per minute which is equal to 74% maximum predicted heart rate. Peak blood pressure 140/66 mmHg. Test was terminated due to fatigue. There was no chest pain. Electrocardiograph monitoring revealed no evidence of diagnostic ischemic ST deviation. FINDINGS: Baseline echocardiogram revealed normal wall motion. At peak exercise, there was normal wall motion augmentation with no hypokinesis or dyskinesis. CONCLUSION: 1. Average exercise tolerance with nondiagnostic electrocardiograph stress testing secondary to the inability to achieve 85% maximum predicted heart rate. 2. Nondiagnostic electrocardiograph stress testing because of the inability to achieve 85% maximum predicted heart rate, but at the rate achieved there was no evidence of stress-induced ischemia. MMODL / IJN: [id number] /
[2020-08-20 16:15] VITALS: PULSE 69; RESP 18
[2020-08-20] MEDS ORDERED: PANTOPRAZOLE 40 MG TABLET PO SCH (21:00)
[2020-08-20] MEDS ORDERED: TIMOLOL 0.5% OPHTH DROPS 5 ML BTL RIGHT EYE SCH (21:00)
== END 2020-08-20 16:12 ==
LOC: EC 20:26 → MERGE 22:44 → 1SOBS 22:44
PROVIDERS: ADMIT Family Medicine; ATTEND Family Medicine
DX: R07.89 Other chest pain (principal); N17.9 Acute kidney failure, unspecified; J44.9 Chronic obstructive pulmonary disease, unspecified; J98.11 Atelectasis; M79.7 Fibromyalgia; F41.0 Panic disorder [episodic paroxysmal anxiety]; F32.9 Major depressive disorder, single episode, unspecified; F41.9 Anxiety disorder, unspecified; R61 Generalized hyperhidrosis; R19.7 Diarrhea, unspecified; F17.210 Nicotine dependence, cigarettes, uncomplicated; Z79.899 Other long term (current) drug therapy; Z88.1 Allergy status to other antibiotic agents; Z88.2 Allergy status to sulfonamides; Z88.8 Allergy status to other drugs, medicaments and biological substances; Z90.710 Acquired absence of both cervix and uterus; Z98.890 Other specified postprocedural states
CPT/HCPCS: 96374; 99285; 36415; 93005; 93306; 93351; 85379; 80053 ×2; 83735; 84484 ×2; 85025; 85610; 85730; 81001; 71046; 71250; 74176; G0378 ×2; J2405

== ENCOUNTER 2020-10-01 12:48 | Emergency (ER) | payer OTHER ==
[2020-10-01 12:55] VITALS: RESP 18; TEMP 99.3
[2020-10-01] MEDS ORDERED: ONDANSETRON 4 MG/2 ML VIAL IVP STA (13:05)
[2020-10-01] MEDS ORDERED: SODIUM CHLORIDE 0.9% 1,000 ML IV STA (13:05)
--- NOTE | 2020-10-01 13:50 | ED ---
General Adult HPI - General Chief complaint: Abdominal Pain Stated complaint: abd pain Time Seen by Provider: 10/01/20 12:58 Source: patient, RN notes reviewed Mode of arrival: ambulatory Limitations: no limitations - History of Present Illness Initial comments: Patient 55-year-old female presented to the emergency room today with a chief complaint of lower abdominal pain over the last 3-4 days. She states that several left side but last night noticed some pain to the right. Patient states currently comfortable at this time. She wasn't feeling nauseated. Denies any other complaints or any other symptoms currently. States she did go to urgent care was advised come here to emergency room for further evaluation. Patient denies any recent fever, chills, shortness of breath, chest pain, back pain, vomiting, numbness or tingling, headaches or visual changes, or any other complaints. - Related Data Home Medications Medication Instructions Recorded Confirmed Escitalopram Oxalate [Lexapro] 10 mg PO DAILY 08/19/20 08/19/20 Gabapentin 300 mg PO BID 08/19/20 08/19/20 Omeprazole 40 mg PO HS 08/19/20 08/19/20 Timolol 0.5% Ophth Soln [Timoptic 1 drop RIGHT EYE HS 08/19/20 08/19/20 0.5% Ophth Soln] diazePAM [Valium] 2 mg PO DAILY PRN 08/19/20 08/19/20 Previous Rx's Medication Instructions Recorded Ibuprofen [Motrin] 600 mg PO Q8HR PRN #30 tab 05/28/20 Omeprazole [PriLOSEC] 40 mg PO DAILY #14 cap 07/22/20 Dicyclomine [Bentyl] 20 mg PO QID #20 tablet 10/01/20 Ondansetron Odt [Zofran ODT] 4 mg PO Q8HR PRN #20 tab 10/01/20 Allergies Allergy/AdvReac Type Severity Reaction Status Date / Time ciprofloxacin AdvReac Rash/Hives Verified 10/01/20 12:53 lorazepam [From Ativan] AdvReac Unknown Verified 10/01/20 12:53 Sulfa (Sulfonamide AdvReac Rash/Hives Verified 10/01/20 12:53 Antibiotics) sulfamethoxazole AdvReac Rash/Hives Verified 10/01/20 12:53 [From Bactrim] trimethoprim [From Bactrim] AdvReac Rash/Hives Verified 10/01/20 12:53 Review of Systems ROS Statement: Those systems with pertinent positive or pertinent negative responses have been documented in the HPI. ROS Other: All systems not noted in ROS Statement are negative. Past Medical History Past Medical History: Fibromyalgia, No Reported History Additional Past Medical History / Comment(s): IBS History of Any Multi-Drug Resistant Organisms: None Reported Past Surgical History: Section, Hysterectomy, Tonsillectomy Past Psychological History: Anxiety, Depression, Panic Disorder Smoking Status: Current every day smoker Past Alcohol Use History: None Reported Past Drug Use History: None Reported General Exam - General Exam Comments Initial Comments: General: The patient is awake and alert, in no distress, and does not appear acutely ill. Eye: extra-ocular movements are intact. No nystagmus. There is normal conjunctiva bilaterally. No signs of icterus. Ears, nose, mouth and throat: There are moist mucous membranes and no oral lesions. Neck: The neck is supple, there is no tenderness or JVD. Cardiovascular: There is a regular rate and rhythm. No murmur, rub or gallop is appreciated. Respiratory: Lungs are clear to auscultation, respirations are non-labored, breath sounds are equal. No wheezes, stridor, rales, or rhonchi. Gastrointestinal: Abdomen soft on palpation. She does have tenderness both left and right lower quadrants. No rebound, guarding. Musculoskeletal: Normal ROM, no tenderness. Strength 5/5. Sensation intact. Pulses equal bilaterally 2+. Neurological: A&O x 3. CN II-XII intact, There are no obvious motor or sensory deficits. Coordination appears grossly intact. Speech is normal. Skin: Skin is warm and dry and no rashes or lesions are noted. Psychiatric: Cooperative, appropriate mood & affect, normal judgment. Limitations: no limitations Course Vital Signs 10/01/20 12:49 Temperature 99.3 F Pulse Rate 71 Respiratory 18 Rate Blood Pressure 132/67 O2 Sat by Pulse 99 Oximetry Medical Decision Making - Medical Decision Making Patient reexamined at this times resting covered. CT is reviewed and does show evidence of colitis. Patient's labs been reviewed. Patient will be given pre scription for Kesha Winn advised close follow family doctor return here to emergency room if any symptoms increase worsen or for new concerns. She states her stated and is in agreement. - Lab Data Result diagrams: 10/01/20 13:43 Lab Results 10/01/20 10/01/20 10/01/20 Range/Units 13:43 13:43 13:43 WBC 9.7 (3.8-10.6) k/uL RBC 4.24 (3.80-5.40) m/uL Hgb 13.5 (11.4-16.0) gm/dL Hct 40.0 (34.0-46.0) % MCV 94.4 (80.0-100.0) fL MCH 31.8 (25.0-35.0) pg MCHC 33.7 (31.0-37.0) g/dL RDW 12.7 (11.5-15.5) % Plt Count 310 (150-450) k/uL MPV 6.9 Neutrophils % 57 % Lymphocytes % 35 % Monocytes % 4 % Eosinophils % 2 % Basophils % 1 % Neutrophils # 5.5 (1.3-7.7) k/uL Lymphocytes # 3.4 (1.0-4.8) k/uL Monocytes # 0.4 (0-1.0) k/uL Eosinophils # 0.2 (0-0.7) k/uL Basophils # 0.1 (0-0.2) k/uL Urine Color Colorless Urine Appearance Clear (Clear) Urine pH 5.5 (5.0-8.0) Ur Specific [place] 1.006 (1.001-1.035) Urine Protein Negative (Negative) Urine Glucose (UA) Negative (Negative) Urine Ketones Negative (Negative) Urine Blood Small H (Negative) Urine Nitrite Negative (Negative) Urine Bilirubin Negative (Negative) Urine Urobilinogen <2.0 (<2.0) mg/dL Ur Leukocyte Esterase Negative (Negative) Urine RBC 1 (0-5) /hpf Urine WBC <1 (0-5) /hpf Urine HCG, Qual Not Detected (Not Detectd) Disposition Clinical Impression: Colitis Disposition: HOME SELF-CARE Condition: Stable Instructions (If sedation given, give patient instructions): Colitis (ED) Additional Instructions: Please use medication as discussed. Please follow-up with family doctor in the next 2 days of symptoms have not improved. Please return to emergency room if the symptoms increase or worsen or for any other concerns. Prescriptions: Dicyclomine [Bentyl] 20 mg PO QID #20 tablet Ondansetron Odt [Zofran ODT] 4 mg PO Q8HR PRN #20 tab PRN Reason: Nausea Is patient prescribed a controlled substance at d/c from ED?: No Referrals: Kenneth Perez MD [Primary Care Provider] - 1-2 days Time of Disposition: 14:28
[2020-10-01 14:15] LABS: Appearance,Urine Clear (Clear); Bilirubin,Urine Negative (Negative); Blood,Urine Small (Negative); Color,Urine Colorless; Glucose,Urine (UA) Negative (Negative); Ketones,Urine Negative (Negative); Leukocyte Esterase,Urine Negative (Negative); Nitrite,Urine Negative (Negative); PH, Urine 5.5 (5.0-8.0); Protein,Urine Negative (Negative); RBC,Urine 1 /hpf (0-5); Specific Gravity,Urine 1.006 (1.001-1.035); Urobilinogen,Urine <2.0 mg/dL (<2.0); WBC,Urine <1 /hpf (0-5)
--- NOTE | 2020-10-01 14:16 | CT ---
EXAMINATION TYPE: CT abdomen pelvis w con DATE OF EXAM: 10/01/2020 HISTORY: bilateral upper quadrant pain CT DLP: 656.9mGycm Automated Exposure Control for Dose Reduction was Utilized. CONTRAST: CT scan of the abdomen and pelvis is performed without oral but with IV Contrast, patient injected wi th 100 mL of Isovue 300. COMPARISON: CT July 22, 2020 FINDINGS: LUNG BASES: Stable 5 mm posterior left basilar nodule axial image 11. LIVER/GB: Subcentimeter low dense lesion posterior right hepatic lobe axial image 26, too small to fu rther characterize, stable presumed benign. PANCREAS: No significant abnormality is seen. SPLEEN: No significant abnormality is seen. ADRENALS: No significant abnormality is seen. KIDNEYS: There is 1.1 cm simple appearing thin-walled cyst anteriorly upper to midpole level right ki dney delayed axial image 27 redemonstrated BOWEL: Evaluation bowel suboptimal due to lack of enteric contrast. Stomach poorly distended and thus suboptimally evaluated. No suspicious small large bowel dilatation. Early moderate wall thickening i n the left colon extending into the proximal sigmoid colon. No significant surrounding fat stranding appears slightly low lying cecum into the right pelvis. Terminal ileum appears within normal limits. UTERUS/ADNEXA: Uterus surgically absent or markedly atrophic. Stable left-sided pelvic phlebolith. LYMPH NODES: No greater than 1cm abdominal or pelvic lymph nodes are appreciated. OSSEOUS STRUCTURES: No significant abnormality is seen. OTHER: No significant additional abnormality is seen. IMPRESSION: Possible mild uncomplicated acute left-sided colitis, correlate clinically. Otherwise no suspicious new or acute findings present.
[2020-10-01 14:17] LABS: Basophils # (A) 0.1 k/uL (0-0.2); Basophils % (A) 1 %; Eosinophils # (A) 0.2 k/uL (0-0.7); Eosinophils % (A) 2 %; HGB 13.5 gm/dL (11.4-16.0); Lymphocytes # (A) 3.4 k/uL (1.0-4.8); Lymphocytes % (A) 35 %; MCH 31.8 pg (25.0-35.0); MCHC 33.7 g/dL (31.0-37.0); MCV 94.4 fL (80.0-100.0); Mean Platelet Volume 6.9; Monocytes # (A) 0.4 k/uL (0-1.0); Monocytes % (A) 4 %; Neutrophils # (A) 5.5 k/uL (1.3-7.7); Neutrophils % (A) 57 %; Platelet Count 310 k/uL (150-450); RBC 4.24 m/uL (3.80-5.40); RDW 12.7 % (11.5-15.5); WBC 9.7 k/uL (3.8-10.6)
[2020-10-01 14:34] LABS: ALT 13 U/L (4-34); AST 19 U/L (14-36); African American GFR (CKD) >90 (>60 ml/min/1.73 sqM); Albumin 4.1 g/dL (3.5-5.0); Alkaline Phosphatase 70 U/L (38-126); Amylase 52 U/L (30-110); Anion Gap 7 mmol/L; Blood Urea Nitrogen 14 mg/dL (7-17); Calcium 9.3 mg/dL (8.4-10.2); Carbon Dioxide 26 mmol/L (22-30); Chloride 107 mmol/L (98-107); Glucose 83 mg/dL (74-99); Lipase 95 U/L (23-300); Non-African American GFR(CKD) >90 (>60 ml/min/1.73 sqM); Potassium 4.3 mmol/L (3.5-5.1); Sodium 140 mmol/L (137-145); Total Bilirubin 0.4 mg/dL (0.2-1.3)
[2020-10-01 14:52] VITALS: BP 115/58; PULSE 64
== END 2020-10-01 14:46 | disposition home or self-care (01) ==
LOC: EC 12:48
DX: K52.9 Noninfective gastroenteritis and colitis, unspecified (principal); F17.200 Nicotine dependence, unspecified, uncomplicated; M79.7 Fibromyalgia; F32.9 Major depressive disorder, single episode, unspecified; F41.0 Panic disorder [episodic paroxysmal anxiety]; Z79.899 Other long term (current) drug therapy; Z88.2 Allergy status to sulfonamides; Z88.1 Allergy status to other antibiotic agents; Z88.8 Allergy status to other drugs, medicaments and biological substances
CPT/HCPCS: 36415; 80053; 82150; 83690; 85025; 81001; 81025; 74177; 99284; 96374; 96361; J2405; Q9967

== ENCOUNTER 2021-02-22 08:26 | Day surgery (SDC) | payer OTHER ==
[2021-02-20 15:46] VITALS: BMI 25.7
[~2021-02-22 08:26] MED LIST: LACTATED RINGERS 1,000 ML IV SCH
[2021-02-22 08:49] VITALS: RESP 16; TEMP 97.4
[2021-02-22] MEDS ORDERED: LIDOCAINE 1% (10MG/ML) FOR IV START INTRADERMA ONE (08:57)
[2021-02-22] MEDS ORDERED: MIDAZOLAM 2 MG/2 ML VIAL IVP ONE (10:15)
[2021-02-22] MEDS ORDERED: GLYCOPYRROLATE 0.2 MG/ML 2 ML VIAL ONE (10:56)
[2021-02-22] MEDS ORDERED: LIDOCAINE 1% INJ 10MG/ML (20 ML MDV) ONE (10:56)
[2021-02-22] MEDS ORDERED: PROPOFOL 10 MG/ML 20 ML VIAL IV ONE (10:56)
--- NOTE | 2021-02-22 11:00 | P.GSHP ---
History of Present Illness H&P Date: 02/22/21 Chief Complaint: Screening colonoscopy This a 55-year-old female who presents today for screening colonoscopy. Patient denies any significant GI complaints. Past Medical History Past Medical History: Fibromyalgia Additional Past Medical History / Comment(s): IBS. HERNIATED CERVICAL DISCS History of Any Multi-Drug Resistant Organisms: None Reported Past Surgical History: Section, Hysterectomy, Tonsillectomy Past Anesthesia/Blood Transfusion Reactions: No Reported Reaction Smoking Status: Current every day smoker - Past Family History Mother Family Medical History: No Reported History Medications and Allergies Home Medications Medication Instructions Recorded Confirmed Type Ibuprofen [Motrin] 600 mg PO Q8HR PRN #30 tab 05/28/20 02/22/21 Rx Escitalopram Oxalate [Lexapro] 10 mg PO DAILY 08/19/20 02/22/21 History Gabapentin 300 mg PO TID 08/19/20 02/22/21 History Timolol 0.5% Ophth Soln [Timoptic 1 drop RIGHT EYE HS 08/19/20 02/22/21 History 0.5% Ophth Soln] Dicyclomine [Bentyl] 20 mg PO QID #20 tablet 10/01/20 02/22/21 Rx Ondansetron Odt [Zofran ODT] 4 mg PO Q8HR PRN #20 tab 10/01/20 02/22/21 Rx Allergies Allergy/AdvReac Type Severity Reaction Status Date / Time ciprofloxacin AdvReac Rash/Hives Verified 02/20/21 15:39 lorazepam [From Ativan] AdvReac Confusion Verified 02/20/21 15:39 Sulfa (Sulfonamide AdvReac Rash/Hives Verified 02/20/21 15:39 Antibiotics) sulfamethoxazole AdvReac Rash/Hives Verified 02/20/21 15:39 [From Bactrim] trimethoprim [From Bactrim] AdvReac Rash/Hives Verified 02/20/21 15:39 Surgical - Exam Vital Signs Temp Pulse Resp BP Pulse Ox 97.4 F L 76 16 150/66 97 02/22/21 08:46 02/22/21 08:46 02/22/21 08:46 02/22/21 08:46 02/22/21 08:46 - General well developed, well nourished, no distress - Eyes PERRL - ENT normal pinna - Neck no masses - Respiratory normal expansion - Cardiovascular Rhythm: regular - Abdomen Abdomen: soft, non tender Assessment and Plan Assessment: We'll perform screening colonoscopy
--- NOTE | 2021-02-22 11:19 | P.OP ---
Date of Procedure: 02/22/21 Preoperative Diagnosis: Screening colonoscopy Postoperative Diagnosis: Internal hemorrhoids Procedure(s) Performed: Colonoscopy Anesthesia: MAC Surgeon: Migue Ryan Pathology: none sent Condition: stable Disposition: PACU Description of Procedure: The patient's placed on the endoscopy table in the lateral position. She received IV sedation. Digital rectal exam was performed which revealed internal hemorrhoids. Flexible colonoscope was then placed patient anus and passed throughout the entire colon. The ileocecal valve was visualized. The cecum, ascending and transverse colon appeared normal. The descending and sigmoid colon appeared normal. Scope was brought back the rectum and this was no. Scope was withdrawn for patient.
[2021-02-22 11:31] VITALS: PULSE 60
[2021-02-22] MEDS ORDERED: ONDANSETRON 4 MG/2 ML VIAL ONE (11:35)
[2021-02-22] MEDS ORDERED: ONDANSETRON 4 MG/2 ML VIAL IVP ONE (11:37)
[2021-02-22 11:58] VITALS: BP 103/62
== END 2021-02-22 12:15 | disposition home or self-care (01) ==
LOC: ORWHC2ENDO 08:26
PROVIDERS: ATTEND Surgery
DX: Z12.11 Encounter for screening for malignant neoplasm of colon (principal); K64.8 Other hemorrhoids; M79.7 Fibromyalgia; K58.9 Irritable bowel syndrome, unspecified; F17.210 Nicotine dependence, cigarettes, uncomplicated; Z79.899 Other long term (current) drug therapy; F32.9 Major depressive disorder, single episode, unspecified; M54.2 Cervicalgia; G89.29 Other chronic pain; Z88.1 Allergy status to other antibiotic agents; Z88.2 Allergy status to sulfonamides
CPT/HCPCS: J2250; J2405; J2001; J2704; G0121; 45378

== ENCOUNTER → 2021-04-11 | Outpatient (CLI) | payer OTHER ==
--- NOTE | 2021-04-11 14:46 | XR ---
EXAMINATION TYPE: XR cervical spine comp DATE OF EXAM: 04/11/2021 CLINICAL HISTORY: pain COMPARISON: NONE TECHNIQUE: Frontal, lateral, oblique, swimmers, and open mouth view of the cervical spine are obtaine d. FINDINGS: The cervical spine is visualized in its entirety from C1 thru the top of T1 level. It is s atisfactory in alignment without evidence of acute fracture or dislocation. The pre-vertebral soft t issue appears within normal limits. Moderate degenerative narrowing at C5-6 and C6-7 with ventral and dorsal spondylosis. The C1-C2 articulation is unremarkable on the open mouth view. The oblique imag es are within normal limits. IMPRESSION: No acute fracture or dislocation is seen in the cervical spine.ICD 10 NO FRACTURE, INITI AL EVALUATION
== END | disposition home or self-care (01) ==
LOC: RADXRMAIN 13:49
PROVIDERS: ATTEND Family Medicine
DX: M54.12 Radiculopathy, cervical region (principal)
CPT/HCPCS: 72050

== ENCOUNTER → 2021-08-07 | Outpatient (CLI) | payer OTHER ==
--- NOTE | 2021-08-08 03:21 | MR ---
EXAMINATION TYPE: MR cervical spine wo con DATE OF EXAM: 08/07/2021 COMPARISON: Neck pain HISTORY: Neck pain, headaches, BUE weakness. Multiplanar multiecho imaging of the cervical spine without contrast. Cervical vertebra have normal alignment. There is mild degenerative disc space narrowing at C5-6 and C6-7. There is small posterior disc herniations at C5-6 and C7-T1. There is developmentally adequate spinal canal. There is no spinal stenosis. Brainstem is intact. There is mild posterior endplate spur ring at C3-4. There is no evidence of focal bone destruction. There is no cervical paraspinal mass. P revertebral soft tissues are intact. IMPRESSION: Mild spondylotic changes and disc bulging as above. No spinal stenosis. No fracture.
== END ==
LOC: RADMRIMAIN 17:17
PROVIDERS: ATTEND Orthopaedic Surgery
DX: M47.812 Spondylosis without myelopathy or radiculopathy, cervical region (principal); M50.323 Other cervical disc degeneration at C6-C7 level
CPT/HCPCS: 72141